=== PATIENT | female | born 1965 | race Caucasian/White ===

== ENCOUNTER 2021-11-25 13:22 | Outpatient (CLI) | payer OTHER, SELFPAY ==
--- NOTE | ~2021-11-25 | XR_ITS ---
XR sinus min 3V DATE: 11/25/2021 13:54 INDICATION: Right facial pain TECHNIQUE: pablo Redd, lateral, submental vertical views COMPARISON: 02/08/2018 CT brain FINDINGS: There is a prominent fluid level in the right maxillary sinus, not present on 02/08/2018 CT brain scan. The paranasal sinuses otherwise appear normally developed and aerated. The mastoid air cells are unre markable. IMPRESSION: Large fluid level in the right maxillary sinus consistent with acute right maxillary sinu sitis Reviewed, dictated and finalized at location A. EAR AUXILIARY OPERATOR IMPRESSION: Large fluid level in the right maxillary sinus consistent with acut e right maxillary sinusitis
[2021-11-27 16:19] LABS: Amphetamines NEGATIVE ng/mL (<500); Barbiturates NEGATIVE ng/mL (<300); Benzodiazepines NEGATIVE ng/mL (<100); Cocaine Metabolite NEGATIVE ng/mL (<100); Marijuana Metabolite NEGATIVE ng/mL (<20); Methadone Metabolite NEGATIVE ng/mL (<100); Opiates NEGATIVE ng/mL (<100); Oxidant NEGATIVE mcg/mL (<200); pH 5.5 (4.5-9.0)
== END 2021-11-25 13:23 | disposition home or self-care (01) ==
LOC: ANHBWCLAB 13:24
PROVIDERS: PCP Family Medicine; Visit Provider Family Medicine
DX: I10 Essential (primary) hypertension (principal); E11.8 Type 2 diabetes mellitus with unspecified complications; G47.61 Periodic limb movement disorder; R53.83 Other fatigue; G89.4 Chronic pain syndrome; G50.0 Trigeminal neuralgia; J01.00 Acute maxillary sinusitis, unspecified
CPT/HCPCS: 70220; 80299

== ENCOUNTER 2022-01-28 14:25 | Outpatient (CLI) | payer OTHER, SELFPAY ==
[2022-01-28 15:27] LABS: Basophils Absolute Auto 0.1 K/mm3 (0.0-0.1); Basophils Percent Auto 0.9 % (0.2-1.2); Eosinophils Percent Auto 10.9 % (0-4.4); Hematocrit 37.1 % (37.0-47.0); Hemoglobin 12.1 g/dL (12.0-15.0); Immature Granulocyte Absolute 0.03 K/mm3 (0.00-0.031); Immature Granulocyte Percent A 0.3 % (0-0.5); Lymphocytes Absolute Auto 3.34 K/mm3 (0.9-3.2); Lymphocytes Percent Auto 36.1 % (18.3-44.2); Mean Corpuscular HGB Conc 32.6 g/dl (32-36); Mean Corpuscular Hemoglobin 30.3 pg (26-34); Mean Corpuscular Volume 92.8 fl (80-100); Mean Platelet Volume 10.3 fl (7.4-10.4); Monocytes Absolute Auto 0.6 K/mm3 (0.1-0.6); Monocytes Percent Auto 6.8 % (2.6-8.5); Neutrophils Absolute Auto 4.2 K/mm3 (1.3-6.7); Platelet Count Result 370 k/mm3 (150-375); Red Cell Distribution Width 13.2 % (11.5-14.5); White Blood Count 9.3 K/mm3 (4.5-10.0)
[2022-01-28 15:37] LABS: Alanine Aminotransferase 21 U/L (4-35); Albumin Level 3.9 g/dL (3.5-5.1); Alkaline Phosphatase 82 U/L (38-126); Anion Gap 9 mmol/L (8-16); Aspartate Amino Transferase 22 U/L (14-36); Bilirubin,Total 0.2 mg/dL (0.2-1.3); Blood Urea Nitrogen 24 mg/dL (7-17); Calcium 9.1 mg/dL (8.4-10.2); Carbon Dioxide 28 mmol/L (22-30); Chloride 98 mmol/L (98-107); Cholesterol 197 mg/dL (0-200); Estimated Glomerular Filt Rate > 60; Glucose 494 mg/dL (65-110); HDL Direct 30 mg/dL; Potassium 4.5 mmol/L (3.4-5.0); Sodium 135 mmol/L (137-145); Triglycerides 294 mg/dL (<150)
[2022-01-28 15:47] LABS: LDL Cholesterol Direct 127 mg/dL
[2022-01-28 17:00] LABS: Hemoglobin A1C 11.7 % (<5.7)
== END 2022-01-28 14:26 | disposition home or self-care (01) ==
PROVIDERS: PCP Family Medicine; Visit Provider Family Medicine
DX: I10 Essential (primary) hypertension (principal); E11.8 Type 2 diabetes mellitus with unspecified complications; R53.83 Other fatigue; G47.61 Periodic limb movement disorder
CPT/HCPCS: 36415; 80053; 80061; 83036; 85025

== ENCOUNTER 2022-05-23 10:20 | Outpatient (CLI) | payer OTHER, SELFPAY ==
[2022-05-23 19:48] LABS: Creatinine Urine 123.7 mg/dL
[2022-05-23 19:56] LABS: MALB Creatinine Ratio 22.5 mg/g (0-30); Microalbumin Urine Random 27.8 mg/L (0-16.7)
[2022-05-23 19:57] LABS: Hemoglobin A1C 7.1 % (<5.7)
== END 2022-05-23 10:21 | disposition home or self-care (01) ==
LOC: ANHBWCLAB 10:21
PROVIDERS: PCP Family Medicine; Visit Provider Family Medicine
DX: E11.9 Type 2 diabetes mellitus without complications (principal)
CPT/HCPCS: 36415; 82043; 83036

== ENCOUNTER 2022-08-29 09:03 | Outpatient (CLI) | payer OTHER, SELFPAY ==
[2022-08-29 18:54] LABS: Hemoglobin A1C 7.8 % (<5.7)
== END 2022-08-29 09:04 | disposition home or self-care (01) ==
LOC: ANHBWCLAB 09:04
PROVIDERS: PCP Family Medicine; Visit Provider Family Medicine
DX: E11.8 Type 2 diabetes mellitus with unspecified complications (principal)
CPT/HCPCS: 36415; 83036

== ENCOUNTER 2023-01-02 09:40 | Outpatient (CLI) | payer OTHER, SELFPAY ==
[2023-01-02 21:12] LABS: Creatinine Urine 127.6 mg/dL
[2023-01-02 21:17] LABS: MALB Creatinine Ratio 13.8 mg/g (0-30); Microalbumin Urine Random 17.6 mg/L (0-16.7)
[2023-01-02 21:38] LABS: Hemoglobin A1C 10.1 % (<5.7)
== END 2023-01-02 09:41 | disposition home or self-care (01) ==
LOC: ANHBWCLAB 09:42
PROVIDERS: PCP Family Medicine; Visit Provider Family Medicine
DX: E11.9 Type 2 diabetes mellitus without complications (principal)
CPT/HCPCS: 36415; 82043; 83036

== ENCOUNTER 2025-05-19 00:18 | Day surgery (SDC) | payer OTHER, SELFPAY ==
[2025-02-20 12:11] VITALS: BMI 26.6
[2025-05-07 15:37] VITALS: BMI 26.6
--- OUTSIDE RECORDS SUMMARY | 2025-05-19 00:20 | XMS_ITS | Clinical Summary ---
Author Organization [facility] Address [address] [place] [address] Care Team Providers Care Spiral Weaver Name Role Phone Teddy Mancilla MD Primary Care Provider [phone] Chava Moreno MD Unavailable Allergies Active Allergy Reactions Criticality Noted Date Comments Lfjfvfzcpguk-Lamkurx-Iwauwzry Vomiting 2015 Medications lisinopril 40 MG tablet Take 40 mg by mouth daily. 0 6 Active nystatin cream Apply topically 3 (three) times daily. apply to affected area 0 6 Active fenofibrate 145 MG tablet Take 145 mg by mouth nightly at bedtime. at bedtime 0 6 Active glipiZIDE extended release 10 MG 24 hr tablet Take 10 mg by mouth daily. 0 6 Active hydrochlorothia zide 12.5 MG capsule Take by mouth daily. 0 6 Active simvastatin 40 MG tablet Take 40 mg by mouth nightly at bedtime. at bedtime 0 6 Active Active Problems Problem Noted Date Diagnosed Date Essential hypertension Abnormal EKG Dyslipidemia Family History Medical History Relation Comments Lung Cancer Father mets to [facility] Paternal Grandfather Relation Status Comments Father Paternal Grandfather Social History Tobacco Use Types Packs/Day Years Used Date Smoking Tobacco: Never Smokeless Tobacco: Never Alcohol Use Standard Drinks/Week Comments No 0 (1 standard drink = 0.6 oz pur e alcohol) Comments Unknown Sex and Gender Information Value Date Recorded Sex Assigned at Not on file Legal Sex Female 1:25 PM CDT Gender Identity Not on file Sexual Orientation Not on file Occupation Industry Job Start Date Job End Date [employer] Not on file Not on file Not on file Last Filed Vital Signs Vital Sign Reading Time Taken Comments Blood Pressure 138/82 08/22/2016 10:07 AM BRICK CARRIER Pulse 112 08/22/2016 10:07 AM BRICK CARRIER Temperature - - Respiratory Rate - - Oxygen Saturation 95% 08/22/2016 10:07 AM BRICK CARRIER Inhaled Oxygen Concentration - - Weight 88.5 kg (195 lb) 08/22/2016 10:07 AM BRICK CARRIER Height 165.1 cm (5' 5) 08/22/2016 10:07 AM BRICK CARRIER Body Mass Index 32.45 08/22/2016 10:07 AM BRICK CARRIER Plan of Treatment Health Maintenance Due Date Last Done Comments Cervical Cancer Screening Pa p Smear (Age 30 to 64) Every 3 Years 1964 Colorectal Cancer Screening Colonoscopy (10 Years) 1964 Annual Physical 1967 Hepatitis C 1982 DTaP, Tdap and Td Vaccines ( 1 - Tdap) 1983 Cervical Cancer Screening Pa p with HPV Testing (Age 30 to 64) Every 5 Years 1994 Cervical Cancer Screening with HPV 1994 Mammogram Screening 2004 Pneumococcal Vaccine: 50+ Ye ars (1 of 1 - PCV) 2014 Zoster Vaccines (1 of 2) 2014 COVID-19 Vaccine ( - 2023-2 5 season) 2024 RSV Immunization or 60+ Years (1 - 1-dose 75+ series) 2039 Meningococcal B Vaccine Aged Out No l onger eligible based on patient's age to complete this topic Meningococcal Vaccine Aged Out No ankush corrine eligible based on patient's age to complete this topic RSV Immunizations Under 20 Months Aged Out No longer eligible based on patient's age to complete this topic Insurance [facility] Care Teams Spiral Weaver Relationship Specialty Start Date End Date Teddy Mancilla MD [address] [place] [address] PCP - General FAMILY PRACTICE 03/16/16 Chava Moreno MD [address] [address] [place] Halver Machine Operator CARDIOVASCULAR DISEASE 08/16/16
--- OUTSIDE RECORDS SUMMARY | 2025-05-19 00:20 | XMS_ITS | Referral Summary ---
Author Organization [facility] Address [address] [place] [address] Care Team Providers Care Rotor Coil Taper Name Role Phone Milton [place] MD Primary Care Provider [phone] Allergies No known active allergies Medications simvastatin (ZOCOR) 40 mg tablet Take 40 mg by mouth daily 6 Active fenofibrate nanocrystallized (TRICOR) 145 mg tablet Take 145 mg by mouth daily 2 Active glipiZIDE (GLUCOTROL) 10 mg tablet Take 10 mg by mouth daily 1 Active lisinopriL (PRINIVIL,ZESTRIL) 40 mg tablet 2 Active metFORMIN (GLUCOPHAGE) 1,000 mg tablet Take 1,000 mg by mouth daily 1 Active metoprolol XL (TOPROL-XL) 50 mg extended release tablet 2 Active gabapentin (NEURONTIN) 300 mg capsule TAKE 1 CAPSULE BY MOUTH 3 TIMES A DAY 1 Active Active Problems No known active problems Social History Tobacco Use Types Packs/Day Years Used Date Smoking Tobacco: Never Personal Safety Answer Date Recorded Getting School Help Needed Not on file 12/29 Comments Unknown Sex and Gender Information Value Date Recorded Sex Assigned at Not on file Legal Sex Female 11:30 AM TAX SENIOR ASSOCIATE Gender Identity Not on file Sexual Orientation Not on file Last Filed Vital Signs Vital Sign Reading Time Taken Comments Blood Pressure 145/85 11/21/2021 9:52 AM TAX SENIOR ASSOCIATE Pulse 112 11/21/2021 9:52 AM TAX SENIOR ASSOCIATE Temperature 36.9 C (98.4 F) 11/21/2021 9:52 AM TAX SENIOR ASSOCIATE Respiratory Rate 18 11/21/2021 9:52 AM TAX SENIOR ASSOCIATE Oxygen Saturation 97% 11/21/2021 9:52 AM TAX SENIOR ASSOCIATE Inhaled Oxygen Concentration - - Weight 78.5 kg (173 lb) 11/21/2021 9:52 AM TAX SENIOR ASSOCIATE Height 165.1 cm (5' 5) 11/21/2021 9:52 AM TAX SENIOR ASSOCIATE Body Mass Index 28.79 11/21/2021 9:52 AM TAX SENIOR ASSOCIATE Plan of Treatment Not on file Insurance [facility] [place] [address] Care Teams Rotor Coil Taper Relationship Specialty Start Date End Date Milton Clinton MD PCP - General Family Practice 11/21/21
--- OUTSIDE RECORDS SUMMARY | 2025-05-19 00:20 | XMS_ITS | Continuity of Care Document ---
Author Organization [facility] Address [address] [place] [address] Phone Care Team Providers Care Roving Hand Name Role Phone No Information Unavailable Unavailable Advance Directives Directive Yes / No Effective Date File Name No Information Encounters Encounter Description Practice Location Reason(s) For Visit Diagnoses Date Provider Providers Copied on Encounter [facility], [address], [place], [place], [id number], [place] tel:[phone] No Information No Information Family History Family Member Type Diagnosis Age At Onset No Information Payers Payer name Insurance type Covered libertarian ID Authoriza tion(s) No Information Social History Type Description Quantity Date Captured Comments Sex Female Smoking Status No Information Chief Complaint And Reason For Visit No Information Reason For Referral Reason For Referral No Information History Of Present Illness Encounter Date Complaint History Of Prese nt Illness No Information Functional Status Date Functional Assessmen t No Information Instructions Date Instruction Additional Infor mation No Information Assessments Type Assessment Date No Information Patient Care Teams Name Effective Dates (start - stop) Status Members No Information
--- OUTSIDE RECORDS SUMMARY | 2025-05-19 00:20 | XMS_ITS | Clinical Summary ---
Author Organization [facility] [address] Address [address] [place] [address] Care Team Providers Care Career Technical Counselor Name Role Phone Milton Clinton MD Primary Care Provider [phone] Allergies No known active allergies Medications simvastatin [...] Active Active Problems No known active problems Medical History Medical History Date Comments Diabetes mellitus (HCC) Social History Tobacco Use Types Packs/Day Years Used Date Smoking Tobacco: Never Personal Safety Answer Date Recorded Getting School Help Needed Not on file 12/29 Comments Unknown Sex and Gender Information Value Date Recorded Sex Assigned at Not on file Legal Sex Female 11:30 AM SHOT CORE DRILL OPERATOR HELPER Gender Identity Not on file Sexual Orientation Not on file Obstetrics History Last Filed Vital Signs Vital Sign Reading Time Taken Comments Blood Pressure 145/85 11/21/2021 9:52 AM SHOT CORE DRILL OPERATOR HELPER Pulse 112 11/21/2021 9:52 AM SHOT CORE DRILL OPERATOR HELPER Temperature 36.9 C (98.4 F) 11/21/2021 9:52 AM SHOT CORE DRILL OPERATOR HELPER Respiratory Rate 18 11/21/2021 9:52 AM SHOT CORE DRILL OPERATOR HELPER Oxygen Saturation 97% 11/21/2021 9:52 AM SHOT CORE DRILL OPERATOR HELPER Inhaled Oxygen Concentration - - Weight 78.5 kg (173 lb) 11/21/2021 9:52 AM SHOT CORE DRILL OPERATOR HELPER Height 165.1 cm (5' 5) 11/21/2021 9:52 AM SHOT CORE DRILL OPERATOR HELPER Body Mass Index 28.79 11/21/2021 9:52 AM SHOT CORE DRILL OPERATOR HELPER Plan of Treatment Health Maintenance Due Date Last Done Comments Breast Cancer Screening-Mammogram 1964 Cervical Cancer Screening 1964 Colon Cancer Screening-Colonoscopy 1964 Depression Screening 1964 Hepatitis C Screening 1964 DTaP/Tdap/Td Vaccine (1 - Tdap) 1975 Hepatitis B Screening 1982 Regular Well Visit/Exam 18-64 1982 Zoster Vaccine (1 of 2) 2014 Covid-19 Vaccine (3 - 2023-2 5 season) 2024 09/17/2021, 12/20/2020 Influenza Vaccine (#1) 2025 Pneumococcal vaccine <65 Aged Out No longer eligible based on patient's age to complete this topic Insurance Care Teams Career Technical Counselor Relationship Specialty Start Date End Date Milton Clinton MD PCP - General Family Practice 11/21/21
--- OUTSIDE RECORDS SUMMARY | 2025-05-19 00:20 | XMS_ITS | Clinical Summary ---
Author Organization [facility] Address [address] [place] [address] Care Team Providers Care Coordinator Of Library Services Name Role Phone Teddy Mancilla MD Primary Care Provider [phone] Source Comments [facility],non-owned Affiliates and Associated Physician Practices is amultiple site organization consisting of ambulatory clinics and hospital sitesin [place], [place], [place]. This disclosure is being madepursuant to the Care Everywhere program and may not contain all information available regarding this patient. Last updated 18.[facility] Allergies Active Allergy Reactions Criticality Noted Date Comments Apqpmwrbljad-Uodqsnc-Bdrvlayf Nausea and/or Vomiting Low 03/22/2017 Medications * Be aware that medications may not be up to date on this document. Alwaysverify current medications with the patient. fenofibrate (TRICOR) 48 MG tablet Take 145 mg by mouth DAILY. 03/22/2017 Active glipiZIDE (GLUCOTROL) 5 MG tablet Take by mouth. 03/22/2017 Active metFORMIN (GLUCOPHAGE) 500 MG tablet Take by mouth. 03/22/2017 Active simvastatin (ZOCOR) 5 MG tablet Take by mouth. 03/22/2017 Active lisinopril (PRINIVIL; ZESTRIL) 2.5 MG tablet Take by mouth. 03/22/2017 Active metoprolol succinate XL 24hr (TOPROL XL) 25 MG tablet Take 25 mg by mouth DAILY. 03/22/2017 Active Family History Medical History Relation Name Comments Cancer Father Relation Name Status Comments Father Social History Tobacco Use Types Packs/Day Years Used Date Smoking Tobacco: Never Alcohol Use Standard Drinks/Week Comments No 0 (1 standard drink = 0.6 oz pur e alcohol) Comments Unknown Sex and Gender Information Value Date Recorded Sex Assigned at Not on file Legal Sex Female 5:36 PM PORTABLE MACHINE CUTTER Gender Identity Not on file Sexual Orientation Not on file Last Filed Vital Signs Vital Sign Reading Time Taken Comments Blood Pressure 159/112 03/22/2017 11:40 AM CDT Pulse 124 03/22/2017 11:40 AM CDT Temperature 36.5 C (97.7 F) 03/22/2017 11:40 AM CDT Respiratory Rate - - Oxygen Saturation - - Inhaled Oxygen Concentration - - Weight 78.5 kg (173 lb) 03/22/2017 11:40 AM CDT Height 165.1 cm (5' 5) 03/22/2017 11:40 AM CDT Body Mass Index 28.79 03/22/2017 11:40 AM CDT Plan of Treatment Health Maintenance Due Date Last Done Comments COLOGUARD (AGES 45-75) - COL ON CA SCREENING 1964 COLON MONITORING 1964 COLONOSCOPY - COLON CA SCREENING 1964 CT COLONOGRAPHY - COLON CA SCREENING 1964 Colorectal Cancer Screening 1964 FIT - COLON CA SCREENING 1964 FLEX SIG - COLON CA SCREENING 1964 MAMMOGRAM 1964 HIV SCREENING 1979 HEPATITIS C SCREENING 07/10/1982 DTAP/TDAP/TD VACCINES (1 - Tdap) 1983 PNEUMOCOCCAL VACCINE 50+ (1 of 1 - PCV) 2014 ZOSTER VACCINE (1 of 2) 2014 COVID-19 VACCINE (1 - 2023-2 5 season) 2024 DEPRESSION SCREENING 10/16/2024 INFLUENZA VACCINE (#1) 2025 Respiratory Syncytial Virus (RSV) Vaccine Pt: or over 60 yrs (1 - 1-dose 75+ series) 2039 HEPATITIS B VACCINE Aged Out No longe r eligible based on patient's age to complete this topic HIB VACCINE Aged Out No longer eligi ble based on patient's age to complete this topic HPV VACCINE Aged Out No longer eligi ble based on patient's age to complete this topic MENINGOCOCCAL (Group B) VACC INE SHARED DECISION-MAKING Aged Out No longer eligibl e based on patient's age to complete this topic MENINGOCOCCAL GROUPS A/C/Y/W VACCINE Aged Out No longer eligible b ased on patient's age to complete this topic Care Teams Coordinator Of Library Services Relationship Specialty Start Date End Date Teddy Mancilla MD [address] [place] [id number] [facility] - General 03/14/17
[2025-05-19 12:41] VITALS: BP 138/79; PULSE 91; RESP 18; TEMP 36.6; O2SAT 100
--- NOTE | 2025-05-19 12:56 | P.PNAN_ITS ---
Anes - Initial Pre Proc Eval Procedure: Operation Date: 05/19/25 13:30 Proposed Procedures p Colonoscopy - Brandon Hennessy MD Date/Time: 05/19/25 12:56 Surgeon: Brandon Hennessy MD Pre Op Diagnosis: fecal abnormalities Patient Data Age: 59 Gender: F Height: 1.65 m Weight: 73.2 kg Last Vital Signs Temp 36.6 C 05/19/25 12:41 Pulse 91 05/19/25 12:41 Resp 18 05/19/25 12:41 BP 138/79 05/19/25 12:41 Pulse Ox 100 05/19/25 12:41 O2 Del Method Room Air 05/19/25 12:41 Allergies Allergy/AdvReac Type Severity Reaction Status Date / Time norgestrel Allergy Unknown Verified 05/19/25 12:38 amoxicillin AdvReac Intermediate vomiting Verified 05/19/25 12:38 intractable orphenadrine AdvReac Unknown VOMITING Verified 05/19/25 12:38 Home Medications ?Medication ?Instructions ?Recorded ?Confirmed ?Type blood sugar diagnostic (OneTouch #100 ea 06/14/22 05/19/25 Rx Ultra Test strips) flash glucose scanning reader #1 ea 01/04/23 05/19/25 Rx (FreeStyle Jose 2 [place]) flash glucose sensor (FreeStyle #6 ea 01/04/23 05/19/25 Rx Jose 2 Sensor kit) metformin 1,000 mg tablet 1,000 mg PO BID #180 tabs 07/26/23 05/19/25 Rx terbinafine HCl 250 mg tablet 250 mg PO DAILY #84 tabs 08/01/24 05/19/25 Rx tramadol 50 mg tablet 50 mg PO BID PRN pain #60 tabs 08/13/24 02/20/25 Rx semaglutide 1 mg/dose (4 mg/3 mL) 1 mg (0.75 mL) subcut WEEKLY 3 01/09/25 05/19/25 Rx subcutaneous pen injector (Ozempic) months #9.75 mL alprazolam 1 mg tablet 1 mg PO ONCE #1 tablet 02/25/25 05/19/25 Rx fenofibrate nanocrystallized 145 See Rx Instructions .Route 03/12/25 05/19/25 Rx mg tablet .COMPLEX #90 tabs lisinopril 40 mg tablet See Rx Instructions .Route 03/12/25 05/19/25 Rx .COMPLEX #90 tabs simvastatin 40 mg tablet See Rx Instructions .Route 03/12/25 05/19/25 Rx .COMPLEX #90 tabs metoprolol succinate 50 mg See Rx Instructions .Route 03/17/25 05/19/25 Rx tablet,extended release 24 hr .COMPLEX #90 tabs Patient hx anesthesia problems: none Family hx anesthesia problems: none Results Review: All pre-operative results and documents have been reviewed as part of the pre- operative evaluation. [facility] Past Medical History Medical History (Updated 05/19/25 @ 13:04 by Angel Smith DO) Claustrophobia Type 2 diabetes mellitus with complication, without long-term current use of insulin Mitral valve insufficiency Hypertension HLD (hyperlipidemia) Family History Family History Mother Patient's mother is in good health Family history of hypercholesterolemia Hypertension Sibling Patient's sister is in good health Patient's brother is in good health Father Family history of hypercholesterolemia Hypertension Family history of malignant neoplasm Grandparent Hypertension Social History Social History Smoking status: Never smoker Second hand tobacco smoke exposure: No Alcohol intake: never Substance use: never Substance use type: does not use Lack of Transportation: No Lack of Food: Never True Current Housing: I Have Housing Concerned About Future Housing: No Difficulty Paying Gas/Electric Bills: No Difficulty Paying for Meds: No Currently Unemployed: No Education: Bachelor's Degree Difficulty w/ Childcare or Family Care: No Living arrangements: with family Spiritual care concerns: No Anes - Eval Final PreProcedure Day of Procedure 05/19/25 12:56 Patient weight: overweight Heart: regular rate and rhythm Lungs: clear to auscultation Airway: Mallampati scale class II Neurological: alert and oriented Last oral intake: >/= 8 hours ASA classification: III Emergent: no Anesthetic plan: proceed Anesthesia type and monitoring: general GIVS and standard monitoring Results Review: All pre-operative results and documents have been reviewed as part of the pre- operative evaluation. Informed Consent: The patient's anesthetic plan and its attendant risks and benefits were discussed with the patient/family/POA. Questions were solicited and answers provided to the satisfaction of the patient/family/POA.
[2025-05-19] MEDS: LACTATED RINGERS 1,000 ML 150 ML IV CONT (12:57)
--- NOTE | 2025-05-19 13:11 | PM.HPGS ---
History of Present Illness History of Present Illness Consent: Risks, benefits, and alternatives have been discussed and questions answered. Patient agrees to proceed with procedure. Chief complaint: fecal abnormalities Narrative: Hattie Burger is a 59 year old female here for first colonoscopy, had + cologuard Review of Systems Review of Systems: All systems reviewed & are unremarkable except as noted in HPI and below PMFSH Past Medical History Medical History (Updated 05/19/25 @ 13:04 by Angel Smith, DO) Claustrophobia Type 2 diabetes mellitus with complication, without long-term current use of insulin Mitral valve insufficiency Hypertension HLD (hyperlipidemia) Family History Family History Mother Patient's mother is in good health Family history of hypercholesterolemia Hypertension Sibling Patient's sister is in good health Patient's brother is in good health Father Family history of hypercholesterolemia Hypertension Family history of malignant neoplasm Grandparent Hypertension Social History Social History Smoking status: Never smoker Second hand tobacco smoke exposure: No Alcohol intake: never Substance use: never Substance use type: does not use Lack of Transportation: No Lack of Food: Never True Current Housing: I Have Housing Concerned About Future Housing: No Difficulty Paying Gas/Electric Bills: No Difficulty Paying for Meds: No Currently Unemployed: No Education: Bachelor's Degree Difficulty w/ Childcare or Family Care: No Living arrangements: with family Spiritual care concerns: No Meds Home Medications and Allergies Home Medications ?Medication ?Instructions ?Recorded ?Confirmed ?Type blood sugar diagnostic (OneTouch #100 ea 06/14/22 05/19/25 Rx Ultra Test strips) flash glucose scanning reader #1 ea 01/04/23 05/19/25 Rx (FreeStyle Jose 2 [place]) flash glucose sensor (FreeStyle #6 ea 01/04/23 05/19/25 Rx Jose 2 Sensor kit) metformin 1,000 mg tablet 1,000 mg PO BID #180 tabs 07/26/23 05/19/25 Rx terbinafine HCl 250 mg tablet 250 mg PO DAILY #84 tabs 08/01/24 05/19/25 Rx tramadol 50 mg tablet 50 mg PO BID PRN pain #60 tabs 08/13/24 02/20/25 Rx semaglutide 1 mg/dose (4 mg/3 mL) 1 mg (0.75 mL) subcut WEEKLY 3 01/09/25 05/19/25 Rx subcutaneous pen injector (Ozempic) months #9.75 mL alprazolam 1 mg tablet 1 mg PO ONCE #1 tablet 02/25/25 05/19/25 Rx fenofibrate nanocrystallized 145 See Rx Instructions .Route 03/12/25 05/19/25 Rx mg tablet .COMPLEX #90 tabs lisinopril 40 mg tablet See Rx Instructions .Route 03/12/25 05/19/25 Rx .COMPLEX #90 tabs simvastatin 40 mg tablet See Rx Instructions .Route 03/12/25 05/19/25 Rx .COMPLEX #90 tabs metoprolol succinate 50 mg See Rx Instructions .Route 03/17/25 05/19/25 Rx tablet,extended release 24 hr .COMPLEX #90 tabs Allergies Allergy/AdvReac Type Severity Reaction Status Date / Time norgestrel Allergy Unknown Verified 05/19/25 12:38 amoxicillin AdvReac Intermediate vomiting Verified 05/19/25 12:38 intractable orphenadrine AdvReac Unknown VOMITING Verified 05/19/25 12:38 Vital Signs Vital Signs - 24 hr 05/19/25 12:41 Temperature 97.9 F Pulse Rate 91 Respiratory Rate 18 Blood Pressure 138/79 Pulse Oximetry 100 Oxygen Delivery Room Air Exam Const: General: comfortable and no acute distress HENMT: Face/Nose/Sinus: Normal nares present Eyes: General: appearance normal, both eyes and all related structures Neck: Neck: no JVD Resp: Auscultation: clear to auscultation bilaterally Cardio: Rate: regular rate Rhythm: regular rhythm GI: Inspection: non-distended GI Palp: Yes Soft to palpation Skin: General skin exam: normal color Neuro: Speech: normal speech Extrem: General: normal to inspection Psych: Mental Status: mental status grossly normal Assessment and Plan Assessment and plan (1) Positive colorectal cancer screening using Cologuard test: Code(s): R19.5 - Other fecal abnormalities Status: Acute Assessment and Plan: colonoscopy
--- NOTE | 2025-05-19 13:30 | S_PTH ---
PATIENT: Hattie Burger LOC: [facility]#:[id number] AGE/SX: 59/F ROOM: RE05/19/[address]: Brandon Hennessy MD : 1965 BED: DIS: 05/19/2025 SPEC #: [id number] RECD: 05/19/25 14:42 STATUS: CLAUDE REMarlyn #: [id number] ALL: 05/19/25 13:[address]: Brandon Hennessy DEPT: [facility] Surgical RECD BY: Meghna Del Cid ENTERED: 05/19/25 14:42 SP TYPE: Surgical OTHR DR: Milton [place] MD Tissues: A - Colon Polypectomy B - Colon Polypectomy Procedures: Hematoxylin and Eosin Stain Gross and Microscopic Level 4
[2025-05-19 13:31] VITALS: BP 100/61; PULSE 80; RESP 17; O2SAT 100
[2025-05-19 13:41] VITALS: BP 95/57; PULSE 80; RESP 16; O2SAT 100
[2025-05-19 13:51] VITALS: BP 117/66; PULSE 84; RESP 15; O2SAT 100
== END 2025-05-19 14:01 | disposition home or self-care (01) ==
PROVIDERS: PCP Family Medicine; Referring Provider Family Medicine; Visit Provider Internal Medicine Gastroenterology
PROC: 0DJD8ZZ Inspection of Lower Intestinal Tract, Via Natural or Artificial Opening Endoscopic (ICD-10-PCS; CPT 45378; principal; 2025-05-19 13:30)
DX: D12.4 Benign neoplasm of descending colon (principal); D12.5 Benign neoplasm of sigmoid colon; K63.5 Polyp of colon; K64.8 Other hemorrhoids; E78.5 Hyperlipidemia, unspecified; I10 Essential (primary) hypertension; E11.9 Type 2 diabetes mellitus without complications; F40.240 Claustrophobia; I34.0 Nonrheumatic mitral (valve) insufficiency; Z79.84 Long term (current) use of oral hypoglycemic drugs; Z79.891 Long term (current) use of opiate analgesic; Z79.85 Long-term (current) use of injectable non-insulin antidiabetic drugs; Z80.9 Family history of malignant neoplasm, unspecified
CPT/HCPCS: 45385; 82948; 88305; J2003; J2704; J7120